=== PATIENT | male | born 1965 | race Caucasian/White ===

== ENCOUNTER 2023-12-05 11:17 | Emergency (ER) | payer BC ==
[~2023-12-05] VITALS: Ht 172.7 cm; Wt 141.3 kg
[2023-12-05 12:26] LABS: BASO % 0.4 % (0.0-1.0); EOS # 0.2 10^3/uL (0.0-0.5); EOS % 1.5 % (0.0-3.0); HEMATOCRIT 46.3 % (42.0-52.0); LYMPH # 1.6 10^3/uL (1.5-5.0); LYMPH % 15.7 % (24.0-44.0); MEAN CORPUSCULAR HEMOGLOBIN 30.3 pg (27.0-33.0); MEAN CORPUSCULAR HGB CONC 34.6 g/dl (32.0-36.5); MEAN CORPUSCULAR VOLUME 87.7 fl (80.0-96.0); MONO # 0.7 10^3/uL (0.0-0.8); MONO % 6.6 % (2.0-8.0); NEUTROPHILS # 7.5 10^3/uL (1.5-8.5); NEUTROPHILS % 75.1 % (36.0-66.0); PLATELET COUNT, AUTOMATED 194 10^3/uL (150-450); RED BLOOD COUNT 5.28 10^6/uL (4.30-6.10)
[2023-12-05 12:32] LABS: ALBUMIN 4.4 G/DL (3.2-5.2); ALKALINE PHOSPHATASE 72 U/L (46-116); ALT/SGPT 28 U/L (7.0-40); AST/SGOT 19 U/L (<34); BILIRUBIN,DIRECT 0.4 MG/DL (<0.4); BILIRUBIN,TOTAL 1.2 MG/DL (0.3-1.2); BLOOD UREA NITROGEN 18 MG/DL (9-23); CALCIUM LEVEL 9.9 MG/DL (8.5-10.1); CARBON DIOXIDE LEVEL 31 MMOL/L (20-31); CHLORIDE LEVEL 100 MMOL/L (98-107); CREATININE FOR GFR 0.91 MG/DL (0.70-1.30); GLOMERULAR FILTRATION RATE > 60.0 (>56); GLUCOSE, FASTING 97 MG/DL (60-100); POTASSIUM SERUM 4.3 MMOL/L (3.5-5.1); SODIUM LEVEL 137 MMOL/L (136-145); TOTAL PROTEIN 7.5 G/DL (5.7-8.2)
[2023-12-05] MEDS ORDERED: ISOVUE-370 76% 100ML VIAL As Ordered ONE (13:43)
[2023-12-05] MEDS: PIPERACILLIN/TAZOBACTAM SOD 3.375 GM in D5W MINI-BAG PLUS 50 ML IV ONE (13:55)
[2023-12-05] MEDS: dexAMETHasone 20MG/5ML VIAL IV ONE (13:55)
[2023-12-05] MEDS: MORPHINE 4 MG/ML 1ML VIAL IV ONE (13:55)
[2023-12-05 14:24] LABS: ERYTHROCYTE SEDIMENTATION RATE 30 mm/hr (0-20)
[2023-12-05] MEDS ORDERED: KETO10TAB PO (15:19)
[2023-12-05] MEDS ORDERED: AMOX875T2 PO (15:19)
[2023-12-05] MEDS ORDERED: PRED20TA PO (15:19)
[2023-12-05 15:36] VITALS: BP 122/60; TEMP 97.5; O2SAT 94
== END 2023-12-05 15:39 | disposition home or self-care (01) ==
LOC: M ED 11:17
DX: K04.7 Periapical abscess without sinus (principal); E11.9 Type 2 diabetes mellitus without complications; I10 Essential (primary) hypertension; E66.9 Obesity, unspecified
CPT/HCPCS: 70491; 80048; 80076; 85025; 85652; 86140; 96365; 96375; 99283; J1100; J2543; Q9967